=== PATIENT | female | born 1955 | race Two or more races ===

== ENCOUNTER 2024-11-16 12:45 | Emergency (ER) | payer OTHER ==
[~2024-11-16] VITALS: Ht 162.6 cm; Wt 79.1 kg
[2024-11-16 12:54] VITALS: TEMP 98.2
[2024-11-16] MEDS ORDERED: LOSA-382 PO (13:05)
[2024-11-16] MEDS ORDERED: AMLO-258 PO (13:05)
[2024-11-16] MEDS ORDERED: CITA10TA99 PO (13:05)
[2024-11-16] MEDS: KETOROLAC TROMETHAMINE 60 MG/2 ML VIAL IM ONE (16:00)
[2024-11-16] MEDS: HYDROCODONE/ACETAMINOPHEN 5-325 MG TABLET PO ONE (16:00)
[2024-11-16] MEDS ORDERED: IBUP-1554 PO (18:40)
[2024-11-16] MEDS ORDERED: DOCU-412 PO (18:40)
[2024-11-16] MEDS ORDERED: HYDR-4062 PO (18:40)
[2024-11-16 19:13] VITALS: BP 111/60; PULSE 64; RESP 18; O2SAT 97
== END 2024-11-16 19:13 | disposition home or self-care (01) ==
LOC: EMS 12:45
DX: S83.8X2A Sprain of other specified parts of left knee, initial encounter (principal); M17.12 Unilateral primary osteoarthritis, left knee; I10 Essential (primary) hypertension; Z79.899 Other long term (current) drug therapy; W18.39XA Other fall on same level, initial encounter; Y93.89 Activity, other specified; Y92.89 Other specified places as the place of occurrence of the external cause; Y99.8 Other external cause status
CPT/HCPCS: 99283; 29505; 73562; 96372; J1885; 29515